=== PATIENT | female | born 1935 ===

== ENCOUNTER → 2016-08-19 | Outpatient (CLI) | payer MEDICARE, OTHER ==
[~2016-08-19] MED LIST: CALCIUM 600 +1 EAC6 PO; DILANTIN100 MG PO; DIOVAN320 MG PO; FLEXERIL10 MG PO; FLONASE 50 MCG/16 GM NOSE; LASIX40 MG PO; LEVOTHROID (SY50 MCG PO; LOPRESSOR25 MG PO; MUCINEX D ER T1 EACH PO; NACL TABS1 GM PO; PHENOBARBITAL32.4 MG PO; PRILOSEC20 MG PO; PROLIA60 MG/ML IM; ULTRAM50 MG PO
== END ==
LOC: LFPA 15:35
DX: M81.0 Age-related osteoporosis without current pathological fracture (principal); M79.1 Myalgia; R53.82 Chronic fatigue, unspecified; M12.9 Arthropathy, unspecified